=== PATIENT | female | born 1945 | race Caucasian/White ===

== ENCOUNTER 2017-01-25 22:21 | Inpatient (IN) | payer MEDICARE, BC ==
[2017-01-25 23:42] LABS: Hematocrit 40 % (35-47); Hemoglobin 13.4 g/dl (12.0-16.0); Mean Corpuscular HGB Conc 33 g/dl (31-36); Mean Corpuscular Hemoglobin 30 pg (27-31); Mean Corpuscular Volume 91 fL (80-97); Mean Platelet Volume 7 um3 (7.4-10.4); Red Blood Count 4.47 10^6/ul (4.0-5.4); Red Cell Distribution Width 14 % (10.5-15); White Blood Count 7.7 10^3/ul (3.5-10.8)
[2017-01-25 23:57] LABS: Albumin 3.8 g/dL (3.2-5.2); BUN/Creatinine Ratio 21.5 (8-20); EGFR African American 116.2 (>60); EGFR Non-African American 90.4 (>60); Globulin 2.6 g/dL (2-4); Total Bilirubin 0.2 mg/dL (0.2-1.0); Total Protein 6.4 g/dL (6.4-8.9)
[2017-01-26 00:24] LABS: Magnesium 2.4 mg/dL (1.9-2.7); Potassium 4.5 mmol/L (3.5-5.0)
[2017-01-26 00:29] LABS: TSH (Thyroid Stimulating Horm) 2.45 mcIU/mL (0.34-5.60)
[2017-01-26 01:13] LABS: Urine Bacteria Absent (Absent); Urine Bilirubin Negative (Negative); Urine Glucose Negative (Negative); Urine Nitrite Negative (Negative)
[2017-01-26] MEDS ORDERED: Gabapentin CAP(*) 100 MG PO PRN (03:26)
[2017-01-26] MEDS: Heparin VIAL(*) 5000 UNITS/ML VIAL (FIVE THOUSAND) SUBCUT SCH ×3 (05:46→21:09)
[2017-01-26 05:54] LABS: HDL Cholesterol 58.7 mg/dL
--- NOTE | 2017-01-26 08:02 | RAD ---
Indication: Weakness, slurred speech. CT of the brain was performed without IV contrast. Comparison is made with previous exam dated August 30, 2014. Ventricular structures are midline. No midline shift is noted. There is central and cortical atrophy noted. There is no evidence of intracranial mass or hemorrhage. Hypodensity in the right basal ganglia and external capsule adjacent to the right caudate nucleus and the temporal lobe which is new since previous exam but does not appear to be a recent infarct. There is a left paramedian pontine infarct noted. Degenerative disc is undetermined. No intracranial hemorrhage is noted. Mastoid air cells and paranasal sinuses are otherwise unremarkable. IMPRESSION: Old infarct in the right basal ganglia as well as in the left paramedian mary beth. No acute changes are noted.
[2017-01-26] MEDS ORDERED: Cyanocobalamin TAB* 500 MCG PO SCH (09:00)
[2017-01-26] MEDS ORDERED: Diltiazem CD CAP* 240 MG PO SCH (09:00)
[2017-01-26] MEDS: Conjugated Estrogens TAB* 0.3 MG TAB PO SCH (09:09)
[2017-01-26] MEDS: Cholecalciferol TAB* 1000 UNITS PO SCH (09:09)
[2017-01-26] MEDS: Aspirin EC Low Dose* 81 MG TAB.EC PO SCH (09:09)
[2017-01-26] MEDS: Losartan TAB* 25 MG PO SCH (09:09)
--- NOTE | 2017-01-26 09:25 | HP ---
HISTORY AND PHYSICAL: DATE OF ADMISSION: 01/26/17 CHIEF COMPLAINT: Trouble walking. HISTORY OF PRESENT ILLNESS: The patient is a 71-year-old woman who recently got back from [place], who says the last 2 to 3 days she has been having trouble walking. She is taking short choppy steps. She is not sure if she feels like she is going to fall. She thinks it is related to the altitude sickness medication she was on for being in [place]; apparently it was dexamethasone. She also felt she had some slurred speech, word-finding difficulties, and a facial droop. She denied blurry vision or headache. She called her PCP on-call who said go to the ER for further evaluation. PAST MEDICAL HISTORY: Significant for hypertension, hyperlipidemia, vertigo, peripheral neuropathy. MEDICATIONS: Current medications are as follows: 1. Losartan 100 mg daily. 2. Gabapentin mg at bedtime as needed. 3. Diltiazem 240 mg daily. 4. Vitamin B12 1000 mcg every 48 hours. 5. Estrogen/Premarin 0.2 mg daily. 6. Cholecalciferol 1000 units daily. 7. Aspirin 81 mg daily. ALLERGIES: She has an allergy/adverse reaction to SULFA ANTIBIOTICS. FAMILY HISTORY: Father in his 80s, and had coronary artery disease in his 40s. Mother had a stroke and had hypertension, and in her 80s. SOCIAL HISTORY: No tobacco or recreational drug use. She drinks two glasses of wine at night. 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 Her , Neeraj Rossi, is her healthcare proxy. REVIEW OF SYSTEMS: A 14-point review of systems was completed with the patient. All pertinent positives and negatives are in the history of present illness, otherwise it is negative. PHYSICAL EXAMINATION GENERAL: Pleasant woman, lying in bed, in no acute distress. VITAL SIGNS: Blood pressure 118/58, pulse ox 96%, respiratory rate 15 breaths per minute, heart rate 69 beats per minute, temperature 98.3 degrees. HEENT: Normocephalic, atraumatic. Pupils equal, round, reactive to light. Moist mucous membranes. NECK: Supple. No JVD, bruits, palpable thyroid, or lymphadenopathy. LUNGS: Chest is clear to auscultation and percussion bilaterally. CARDIOVASCULAR: S1 and S2 appreciated. Regular rate and rhythm. ABDOMEN: Positive bowel sounds in all 4 quadrants. Soft, nontender, and nondistended. No hepatosplenomegaly. EXTREMITIES: No cyanosis, clubbing, or edema. +2 peripheral pulses bilaterally. NEUROLOGIC: Alert and oriented x3. Moves all extremities. Good finger to nose. 5/5 motor strength in upper and lower extremities. No evidence of facial droop. Cranial nerves II through XII grossly intact. SKIN: No lesions or rashes. LABORATORY DATA: White count 7.7, hemoglobin 13.4, hematocrit 40, platelets 303. Sodium 133, potassium 4.5, chloride 104, CO2 22, BUN 14, creatinine 0.65, glucose 99. Urinalysis shows trace leukocyte esterase. Brain CT shows nonacute right basal ganglia external capsule infarct, not present in 2013 scan. Suspect that acute infarct is not on CT at this time. Possible tiny left paramedian pontine infarct of unknown age, too small to characterize. No hemorrhage or shift or herniation. EKG shows normal sinus rhythm at 61 beats per minute. Normal axis. No acute ST or T-wave changes. ASSESSMENT AND PLAN: 1. Possible CVA. Could be from the dexamethasone, but I am still concerned with her symptoms of slurred speech and word-finding difficulties. We will admit the patient to telemetry. MRI in the a.m. Get transthoracic echo with bubble study. Neurology to see. Neuro checks q. 4 hours. Check lipid profile. Continue aspirin. 2. Hypertension. Continue current regimen. Blood pressure adequate. Adjust medications accordingly. 3. Fluids, Electrolytes, Nutrition. Regular diet. 4. Deep venous thrombosis prophylaxis. Heparin subcu. 5. The patient is a full code. TIME SPENT: Over 75 minutes were spent on this H and P, more than 40 minutes of which were spent in direct [id number] contact with the patient in evaluation, physical examination, counseling, and coordination of care. CC: Dr. Bev Tate* [id number]/[facility] #: [id number] [place]
--- NOTE | 2017-01-26 10:47 | PN ---
Subjective Date of Service: 01/26/17 Interval History: Seen with at bedside Events of this AM reviewed Episode of brief (5 seconds) loss of consciousness with upper extremity shaking. Event correlated with >3 second pause No LH, CP, SOB, nausea Feels symptoms from yesterday resolved Objective Active Medications: Aspirin (Aspirin Ec Low Dose*) 81 mg PO DAILY [facility] Last Admin: 01/26/17 09:09 Dose: 81 mg Cholecalciferol (Vitamin D Tab*) 1,000 units PO DAILY [facility] Last Admin: 01/26/17 09:09 Dose: 1,000 units Cyanocobalamin (Vitamin B12 Tab*) 1,000 mcg PO Q48HR [facility] Last Admin: 01/26/17 09:09 Dose: 1,000 mcg Estrogens Conjugated (Premarin Tab*) 0.3 mg PO DAILY [facility] Last Admin: 01/26/17 09:09 Dose: 0.3 mg Gabapentin (Neurontin Cap(*)) 100 mg PO BEDTIME PRN PRN Reason: INSOMNIA Heparin Sodium (Porcine) (Heparin Vial(*)) 5,000 units SUBCUT Q8HR [facility] Last Admin: 01/26/17 05:46 Dose: 5,000 units Losartan Potassium (Cozaar Tab*) 100 mg PO DAILY [facility] Last Admin: 01/26/17 09:09 Dose: 100 mg Vital Signs 01/26/17 01/26/17 01/26/17 05:01 07:32 08:00 Temperature 98.4 F 98.0 F Pulse Rate 70 67 Respiratory 16 18 16 Rate Blood Pressure 132/62 116/52 (mmHg) O2 Sat by Pulse 97 97 Oximetry Oxygen Devices in Use Now: None Appearance: NAD Eyes: No Scleral Icterus, PERRLA Ears/Nose/Mouth/Throat: NL Teeth, Lips, Gums, Clear Oropharnyx, Mucous Membranes Moist Neck: NL Appearance and Movements; NL JVP, Trachea Midline Respiratory: Symmetrical Chest Expansion and Respiratory Effort, Clear to Auscultation Cardiovascular: RRR, - - 2/6 PHILLIP Abdominal: NL Sounds; No Tenderness; No Distention, No Hepatosplenomegaly Lymphatic: No Cervical Adenopathy Extremities: No Edema, No Clubbing, Cyanosis Neurological: Alert and Oriented x 3, NL Muscle Strength and Tone, - - very slight deviation of tongue to right, slightly slower finger tapping in right hand otherwise configuration release manager intact, no pronator drift, intact finger nose finger Result Diagrams: 01/25/17 23:30 01/25/17 23:30 Assess/Plan/Problems-Billing Assessment: 71 yo F h/o vertigo (receives vertigo PT), peripheral neuropathy, HTN on diltiazem p/w episode of gait instability x 2 days and confusion with slurred speech x 1 hour with hospital stay complicated by LOC in setting of >3 second pause - Patient Problems (1) Altered mental state Comment: Concern for TIA vs CVA. Symptoms now resolved. Potential that conduction abnormality was contributing at home as well TTE with bubble Carotid dopplers c/w neuro checks c/w telemetry hold cardizem as noted below (2) Sinus pause Comment: on cardizem - hold AV harjinder blockers cardiology c/s maintain tele small anteroapical defect on last stress in 2013. Will wait cardiology recs re: stress test (3) HTN (hypertension) Comment: losartan hold cardizem (4) DVT prophylaxis Comment: HSQ
[2017-01-26] MEDS ORDERED: Atropine SYRINGE* 0.1 MG/ML 10 ML SYRINGE (1 MG) ONE (10:54)
[2017-01-26] MEDS ORDERED: EPINEPHrine SYR 0.1 MG/ML* (1:10,000) SYRINGE PRN (11:02)
--- NOTE | 2017-01-26 12:33 | ECHO ---
Patient: ENEDELIA CRAIG [facility] Rec#: [id number] : 1945 Date: 01/26/2017 Age: 71y Height: 162.6 cm / 64.0 in Weight: 69.4 kg / 153.0 lbs Sex: F BSA: 1.8 Room#: [facility] Admit Date#: 01/26/2017 Type: Inpatient Referring: Marques Arora MD Reading: Camilla Chavira MD Checking Clerk: Mindy Manzo RN RDCS CC: Bev Tate MD Transthoracic Echocardiogram Indication: CVA BP: 132/62 HR: 58 Rhythm: Bradycardia Findings History: HTN, dyslipidemia Technical Comments: The study quality is fair. Completed at 1225. Left Ventricle: The left ventricular chamber size is normal. Mild to moderate concentric left ventricular hypertrophy is observed. Global left ventricular wall motion and contractility are within normal limits. There is normal left ventricular systolic function. The estimated ejection fraction is 60-65%. Abnormal left ventricular diastolic filling is observed, consistent with impaired relaxation. Left Atrium: The left atrial chamber size is normal. Right Ventricle: The right ventricular cavity size is normal. The right ventricular global systolic function is normal. Right Atrium: The right atrium is slightly dilated. Interatrial septum appears intact without evidence of shunting. The bubble study is negative. There is evidence of an atrial septal aneurysm. Aortic Valve: The aortic valve is trileaflet. The aortic valve leaflets are mildly thickened. There is a trace of aortic regurgitation. There is no evidence of aortic stenosis. Mitral Valve: The mitral valve leaflets are mildly thickened. There is trace to mild mitral regurgitation. There is no evidence of mitral stenosis. Tricuspid Valve: The tricuspid valve leaflets are normal. There is trace tricuspid regurgitation. No pulmonary hypertension is noted. There is no tricuspid stenosis. Pulmonic Valve: The pulmonic valve appears normal. There is no evidence of pulmonic regurgitation. There is no pulmonic stenosis. Pericardium: There is no significant pericardial effusion. A pericardial fat pad is visualized. Aorta: There is no dilatation of the ascending aorta. There is no dilatation of the aortic arch. There is no dilation of the aortic root. Pulmonary Artery: The main pulmonary artery is not well visualized. Venous: The inferior vena cava appears normal in size. There is a greater than 50% respiratory change in the inferior vena cava dimension. Contrast: Normal saline was used as contrast for the bubble study. Images 35 and 36. Conclusions Mild to moderate concentric left ventricular hypertrophy is observed. Global left ventricular wall motion and contractility are within normal limits. The estimated ejection fraction is 60-65%. Abnormal left ventricular diastolic filling is observed, consistent with impaired relaxation. The right ventricular global systolic function is normal. Interatrial septum appears intact without evidence of shunting. There is a trace of aortic regurgitation. There is trace to mild mitral regurgitation. There is trace tricuspid regurgitation. Compared with prior echo of 08/19/14, ventricular and valvular function are stable. Measurements Name Value Normal Range RVDdMajor (2D) 3.5 cm (2.2 - 4.4) RAd ISD 4CH 5.2 cm (3.4 - 4.9) RA (A4C)W 3.8 cm (2.9 - 4.6) IVSd (2D) 1.3 cm (0.6 - 1) LVPWd (2D) 1.1 cm (0.6 - 1) LVIDd (2D) 3.6 cm (3.6 - 5.4) Aortic Annulus 1.9 cm (1.4 - 2.6) Ao root diameter (2D) 2.7 cm (2.1 - 3.5) Ascending Ao 3 cm (2.1 - 3.4) Aortic arch 2.5 cm (1.8 - 3.4) LA dimension (AP) 2D 3.4 cm (2.3 - 3.8) LAd ISD 4CH 5 cm (2.9 - 5.3) LA ISD 4CH W 3.8 cm (2.5 - 4.5) Name Value Normal Range LA ESV SP 4CH (A/L) 47 ml - LA ESV SP 2CH (A/L) 40 ml - LA ESV BP (A/L) 44 ml - LA ESV BP (A/L) index 25.1 ml/m2 - LA ESV SP 4CH (MOD) 45 ml - LA ESV SP 2CH (MOD) 39 ml - Name Value Normal Range MV E-wave Vmax 0.55 m/sec - MV deceleration time 327 msec - MV A-wave Vmax 0.71 m/sec - MV E:A ratio 0.77 ratio - LV septal e' Vmax 0.06 m/sec - LV lateral e' Vmax 0.07 m/sec - LV E:e' septal ratio 9.2 ratio - LV E:e' lateral ratio 7.9 ratio - Name Value Normal Range AV Vmax 1.2 m/sec - AV VTI 28.8 cm - AV peak gradient 5 mmHg - AV mean gradient 3 mmHg - LVOT Vmax 1.2 m/sec - LVOT VTI 25.7 cm - LVOT peak gradient 5 mmHg - LVOT mean gradient 3 mmHg - BRADLY Vmax 0.92 m/sec - Name Value Normal Range TR Vmax 2.4 m/sec - TR peak gradient 23 mmHg - RAP 3 mmHg - RVSP 26 mmHg - IVC diameter 1.8 cm - Name Value Normal Range PV Vmax 0.74 m/sec -
[2017-01-26] MEDS: Clopidogrel TAB* 75 MG PO SCH (15:26)
--- NOTE | 2017-01-26 15:45 | RAD ---
INDICATION: History of TIA COMPARISON: August 30, 2014 TECHNIQUE: Transverse and longitudinal scans of the carotid and vertebral arteries were performed with gallardo scale, color Doppler, and spectral Doppler imaging. Stenosis criteria is based on flow velocities that correlate with visual internal carotid artery diameter (NASCET criteria) FINDINGS: Right carotid: There is minor homogeneous plaque involving the bifurcation. There is no spectral broadening. The peak systolic velocity of the internal carotid artery is 86 cm/s and the peak diastolic velocity 22 cm/s. The ICA/CCA ratio is calculated at 1.0. This corresponds to a less than 50% diameter stenosis. Left carotid: There is minor homogeneous plaque involving the bifurcation. There is no spectral broadening. The peak systolic velocity of the internal carotid artery is 117 cm/s and the peak diastolic velocity 39 cm/s. The ICA/CCA ratio is calculated at 1.1. This corresponds to a less than 50% diameter stenosis. Right vertebral: Right vertebral waveforms are normal and the flow is antegrade. Left vertebral: Left vertebral waveforms are normal and the flow is antegrade. IMPRESSION: NO EVIDENCE OF A HEMODYNAMICALLY SIGNIFICANT STENOSIS CPT II Codes: 3100F [facility]
[2017-01-26] MEDS ORDERED: Iohexol 350* (CONTRAST) 500 ML MDV IV ONE (16:00)
--- NOTE | 2017-01-26 16:34 | RAD ---
Indication: Difficulty walking. Slurred speech and word finding. Symptoms for 2 days. Comparison: January 25, 2017 CT and April 16, 2014 MRI. Technique: NativeX[employer] 1.5 Dannielle [id number] with GEM suite. MRI brain without contrast. Report: Approximate 0.7 cm AP by 0.2 cm transverse region of restricted diffusion at the LEFT para midline mary beth anteriorly with corresponding decreased signal on ADC map consistent with subacute infarct. Negative for mass effect. Adjacent 3 mm chronic LEFT pontine lacunar infarct noted. No additional foci of restricted diffusion evident at the posterior fossa or cerebrum. Old lacunar infarct at the RIGHT basal ganglia peripheral putamen and external capsule. Mild burden of increased signal in the periventricular and subcortical white matter of the cerebral hemispheres without change most consistent with chronic small vessel ischemic disease. Negative for intra or extra-axial fluid collection. Susceptibility series is negative for stigmata of hemosiderin deposition to indicate previous hemorrhage. Mild prominence of the cerebral sulci and ventricles reflecting involutional change. Unremarkable basal cisterns. Preserved major intracranial flow-voids. Unremarkable orbital contents. Grossly clear paranasal sinuses and mastoid air spaces. No suspicious lesion of the calvarium or skull base evident. IMPRESSION: 1. Small subacute LEFT para midline pontine infarct without associated mass effect. Adjacent small chronic LEFT pontine lacunar infarct. 2. Mild atrophy and stigmata of chronic small vessel ischemic disease without significant interval change.
--- NOTE | 2017-01-26 17:03 | RAD ---
Indication: Stroke. Contrast: Administered 80.1 ml of OMNIPAQUE 350 mg/ml CTA of the neck and head was performed after IV contrast administration. Coronal, sagittal and 3-D reconstructive images were obtained. The aortic arch appears to be intact. There is a common origin of left common carotid artery with innominate artery. The common carotid artery origins demonstrates no evidence of calcific plaque. The common carotid arteries bilaterally demonstrates no evidence of intimal wall thickening. The carotid artery bifurcations bilaterally show no evidence of calcifications. No evidence of carotid artery dissection is noted. The vertebral arteries demonstrates a dominant left vertebral artery. No evidence of calcific plaque is noted at the origins of the vertebral arteries. No evidence of vertebral artery dissection is noted. The intracranial portions of the carotid artery demonstrates no evidence of aneurysmal dilatation. The anterior and middle cerebral arteries are unremarkable although there is an absent A1 segment of the right anterior cerebral artery. The right anterior cerebral artery appears to be supplied by a patent anterior communicating artery the left posterior cerebral artery appears to be supplied by a left patent posterior indicating artery. The right posterior cerebellar artery unremarkable. No aneurysmal dilatation is noted. No branch occlusion is identified. IMPRESSION: NO EVIDENCE OF CAROTID ARTERY STENOSIS IS NOTED. VERTEBRAL ARTERIES ARE GROSSLY UNREMARKABLE. THERE IS AN ABSENT A1 SEGMENT OF THE RIGHT ANTERIOR CEREBRAL ARTERY WITH THE RIGHT ANTERIOR FEMORAL ARTERY SUPPLIED BY PATENT ANTERIOR COMMUNICATING ARTERY. NO EVIDENCE OF ANEURYSMAL DILATATION OR BRANCH OCCLUSION IS NOTED.
--- NOTE | 2017-01-26 23:36 | CONS ---
NEUROLOGY CONSULTATION: DATE OF CONSULTATION: 01/26/17 REFERRING PROVIDER: Dr. Arora. LOCATION: She is an inpatient, room 448. CHIEF COMPLAINT: Slurred speech, unsteadiness. HISTORY OF PRESENT ILLNESS: Sonja Rossi is a 71-year-old right-handed woman who was out visiting her son in [place] and taking dexamethasone because of the altitude of 8000 feet. She generally did not feel well the whole time she was there and that has been the case in the past when she has gone to higher altitudes. She took dexamethasone at this time and was taking it 4 times a day for perhaps 5 days altogether on a tapering schedule. She did not feel as sick as she did the last time she was there, but she felt unsteady and somewhat confused. When she returned to [place] this past weekend, her speech was slurred. She is not sure exactly when it started, but her noted it on Tuesday, which was about 2 to 3 days prior to admission. The unsteadiness had been going on for a bit longer, but she was attributing it to altitude sickness. However, it persisted upon return to [place]. She has not noticed any incoordination in the limbs otherwise, no faints or lightheadedness and no change in vision. She has not had any headache, but she has felt a little bit confused. As part of her evaluation, she had a CT scan of the brain n the bowl sander hours, which showed evidence of an old right small vessel infarction just lateral to the basal ganglia in the right frontal lobe. It appears pretty well defined and appears old. There is also a left paramedian pontine area of low density, which appears to be a small vessel infarction and that is more of an indeterminate age as it is fairly fuzzy. There is no prior history of stroke clinically. PAST MEDICAL HISTORY: Notable for concussion in 2013. She had unsteadiness and difficulty concentrating for quite sometime after that. She has had episodic vertigo precipitated by movement since also by 2013. She has gotten vestibular therapy for that and that has been very helpful. Her past medical history is notable for hypertension for which she has been on medications for quite sometime, hyperlipidemia. MEDICATIONS: At home consistent of; 1. Aspirin 81 mg p.o. daily. 2. Estrogen and Premarin 0.2 mg p.o. daily. 3. Vitamin D 1000 units p.o. daily. 4. Diltiazem 240 mg p.o. daily. 5. Gabapentin 300 mg p.o. q.h.s. 6. Losartan 100 mg p.o. daily. ALLERGIES: She is allergic to SULFA DRUGS. FAMILY HISTORY: Noncontributory. Mother had a stroke in her 80s. REVIEW OF SYSTEMS: Negative for headaches, double vision, difficulty swallowing , or recent falls. 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 She does not smoke. There is no history of diabetes. There is no history of seizures. No recent intestinal problems and her weight has been stable. She has not had any leg pain or swelling recently. No shortness of breath or chest pain. She drinks 2 glasses of wine at night. PHYSICAL EXAMINATION: She is well nourished and well hydrated. Temperature is 98.4 orally, blood pressure 132/62, heart rate in the 60s and regular, respiratory rate is 18, oxygen saturation 97% room air. Heart is in a regular rate and rhythm without murmurs. Lungs are clear bilaterally. Carotid pulses are symmetrical and there are no cervical bruits. Oral mucosa is moist and atraumatic. Neck range of motion is full. Neurological: Pupils react equally from 3 to 2 mm. Funduscopic exam reveals arterial tortuosity and silver wiring. There are no hemorrhages and optic discs are sharp. Eye movements are normal. There is no ptosis. Visual rosenberg are full to confrontation. Facial musculature is notable for very mild flattening of the right nasolabial fold. Formal volitional facial strength testing is normal, however. Facial sensation to pin, temperature, and light touch is intact and symmetric. Palate and tongue appear normal, palate rises symmetrically and tongue protrudes in the midline. There is a mild, what sounds to be lingual dysarthria. Hearing is intact bilaterally and neck strength is normal. On motor exam she has normal muscle tone and strength in the limbs proximally and distally. There may be a mild right pronator drift. Finger taps are normal in the hand symmetrically. Flhpzq-gg-socj maneuver is a little bit clumsy bilaterally and symmetrically, perhaps a little worse on the left. There is no myoclonus or rest tremor. Nqfz-pj-[id number] maneuver is clumsy bilaterally, little worse on the left. Reflexes are hypoactive, but present. Ankle reflexes are trace. Plantar responses equivocal on the right and extensor on the left. Gait is wide based and unsteady. She is able to ambulate independently, but she is somewhat ataxic. Sensory exam in the limbs is intact to vibration, proprioception, and light touch. Romberg sign is present. She is alert and oriented and a pretty good historian, but somewhat inexact on recent details. Language is fluent. She loses her attention and concentration at times. LABORATORY DATA: Includes a CT scan described above. Carotid ultrasound was done and interpretation is pending. Transthoracic echocardiogram done early today reveals [id number] concentric left ventricular hypertrophy with a normal ejection fraction. There is no evidence of patent foramen ovale. There is mild valvular abnormalities, but nothing significant. Other laboratory data is notable for normal CBC, normal chemistry profile including glucose. Cholesterol this morning was 203, LDL 102, TSH 2.45. 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 She has at least one, if not two small vessel infarctions on her CAT scan, which appear old. There may be subacute pontine infarction; however, as onset of her symptoms could have been as early as last week. We will await the results of her MRI scan, which has been ordered. I have added Plavix 75 mg to her aspirin. I would hold off on statins for now. I should note she did have a carotid ultrasound study in 2013, which did not reveal significant carotid stenosis. However, her current symptoms suggest more of a posterior circulation process. She had an episode this morning of a pause on her telemetry with a brief faint. Apparently she was unaware of it and her reported it. Dr. Leigh stopped her diltiazem subsequently. We will continue to monitor her on telemetry as well and I will continue to follow. CC: Dr. Tate * [id number]/[facility] #: [id number] [facility] AMERICAN HOSPITALSav
--- NOTE | 2017-01-27 04:03 | CONS ---
CONSULTATION REPORT: DATE OF CONSULTATION: 01/26/17 REASON FOR CONSULTATION: Bradycardia, symptomatic. CHIEF COMPLAINT: Difficulty walking and speaking. HISTORY OF PRESENT ILLNESS: The patient is a 71-year-old woman with a history of hypertension. She has been seen by my partner, Dr. Adan, in the past as well. The patient states that she recently flew to [place] to see her grandkids. To handle that altitude, she took dexamethasone. They drove to [place] and then flew to [place] and while in [place] took the dexamethasone, felt that her heart was racing but regular. She did not pay much attention to it, but it was racing more than on another trips. She said she is always winded when she goes to [place] with exertion and was not more winded than usual, different from prior trips with the same medications. She did not have leg swelling. They then flew back to [place] and on the drive back to [place], stopped at a bad restaurant. On returning to [place], she had significant diarrhea. She said it was very bad. Following this, 3 days after return from her trip she had trouble walking and had slurred speech and trouble finding her words. In the emergency room, a CT scan showed an old right basal ganglia, external capsular infarct, new from 2013 and no evidence of acute ischemic changes. MRI today consistent with an acute ischemic event. The patient was given hydration, subcutaneous heparin and when seen by the hospitalist this morning on rounds, while talking the patient would not recollect the event, but she was told she lost consciousness. Dr. Leigh who witnessed the event said she had seizure-like activity and on the monitor had a 6 second pause, she had sinus rhythm with some missed sinus beats and she with 3 nonconducted sinus beats. The patient denies any recollection of any prior events, but she does not even know she had this event, only that she was told. She did have an episode 2 years ago, for which she saw Dr. Adan where she walked to the mailbox, was very nauseated from eating some soup that she thinks was bad and felt very disoriented, very spacey and very nauseated. Today, the patient states she did feel nauseated with this event and it had not been a problem beforehand. The patient states that her breathing currently is at baseline. PAST MEDICAL HISTORY: 1. Hypertension. 2. Dyslipidemia. 3. Vertigo. 4. Peripheral neuropathy. MEDICATIONS: Outpatient medications included: Diltiazem 240 mg a day. Current inpatient medications: 1. Diltiazem was stopped after her bradycardic event. 2. She is on Cozaar 100 mg a day. 3. Subcutaneous heparin. 4. Neurontin 100 mg q.h.s. p.r.n. insomnia. 5. Premarin tablet 0.3 mg a day. 6. Epinephrine p.r.n. asystole. 7. B12, 1000 mg q.48 hours. 8. Plavix 75 mg a day. 9. Vitamin D 1000 units a day. 10. Aspirin 81 mg a day. ALLERGIES: Include SULFA ANTIBIOTICS. FAMILY HISTORY: Significant in that her father had early atherosclerotic heart disease in his 40s. Her mother had a stroke and high blood pressure and in her 80s. SOCIAL HISTORY: The patient is a nonsmoker. Drinks 2 glasses of wine at night. 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 Lives with her . REVIEW OF SYSTEMS: Review of systems was performed. No recent fevers, chills, sweats, coughing, orthopnea, PND. No hematuria or dysuria. Her diarrhea as mentioned above was noted. No swelling of the lower extremities. No shortness of breath since she has been home. See history of present illness. All other review of systems was unremarkable. The patient has had ticks in the past, but has had negative Lyme titers in the past (2 years ago). PHYSICAL EXAMINATION: On exam, the patient is 5 feet 4 inches, weighs 156 pounds with BMI of 27. Vital Signs: On admission, blood pressure 137/69 with pulse of 66 currently. Blood pressure 116/62 with pulse of 67 (sinus rhythm), respiratory rate is 18, oxygen saturation 97% on room air and she has been afebrile at 98.0. General Appearance: Short, overweight older woman, lying at 30 degrees, in no acute distress. Psychologically, pleasant and cooperative. Neurologically, awake, alert, and oriented to person, place, I did not evaluate for time. She does have evidence of a mild expressive aphasia, but she does eventually find the words. Comprehension seems normal and excellent. She follows commands well. I did not do formal sensory and motor exam. Skin: Warm , dry. No appreciable cyanosis. HEENT: Mucous membranes moist. Tongue is midline. Neck: Without appreciable increased JVP. Good carotid pulses, they are symmetrical. Breath sounds were clear with good effort. No wheezes, rales , or rhonchi. Coronary: S1 and S2 regular, a bit distant, but no murmurs or rub. Abdomen: No epigastric discomfort. No hepatosplenomegaly or masses. Lower extremities were free of edema and warm. Sequential compression stockings were on. LABORATORY DATA/DIAGNOSTIC STUDIES: White count 7.7, hemoglobin 13.4, platelets 303. Sodium 133, potassium 4.5, glucose 99, BUN 14, creatinine 0.65. Urinalysis; specific gravity 1.009, ketones negative, esterase trace, nitrite negative, bacteria absent. Total cholesterol 203, triglycerides 210, LDL cholesterol 102, and HDL cholesterol 59. Troponin 0.00. On 10/04/13, Lyme titers were negative. On 01/25/17, brain CT showed the old stroke described above. CT angiogram of the head today at 1504 showed no evidence of carotid stenosis. Vertebral arteries unremarkable. Absent A1 segment of the right anterior cerebral artery appears to be supplied by the patent anterior communicating artery and left posterior cerebral artery appears to be supplied by the left patent posterior indicating artery. Carotid Doppler study from 01/26/17 showed no hemodynamically significant stenoses. Brain MRI from 01/26/17 at 9 this morning shows small subacute left paramidline pontine infarct without mass effect. Adjacent small chronic left pontine lacunar infarct and mild atrophy and stigmata of chronic small vessel ischemic disease. Echocardiogram today shows mild to moderate left ventricular hypertrophy with an ejection fraction of 60% to 65% and abnormal diastolic filling. She had normal right ventricular function. No evidence of interatrial shunting. Good valve function with mild to mitral insufficiency, trace aortic insufficiency, and trace tricuspid insufficiency. (Bubble study negative). Atrial septal aneurysm noted. IMPRESSION: In summary, Sonja Rossi is a 71-year-old woman with a history of hypertension who travelled by plane to [place] and back, on dexamethasone steroids for altitude and after returning developed initially diarrhea followed by acute neurological symptoms of difficulty walking and expressive aphasia with evidence of a new ischemic injury on her MRI today. The patient had the sensation of heart racing on dexamethasone and altitude in [place] and had evidence of complete heart block with loss of consciousness today and a possible scenario of bradycardia with vagal stimuli 2 years ago when she met Dr. Adan. The potential etiologies of the stroke would include a paradoxical embolus related to flying and deep venous thrombosis, but this was not demonstrated on echo. It is also possible the patient had paroxysmal atrial fibrillation that is asymptomatic leading to a stroke and it is also possible that the timing of the stroke is incidental to the flying and more related to hypertension and smoking. With respective dysrhythmias, we have not seen any tachyarrhythmias, but she has bradyarrhythmias possibly related to increased vagal tone, but she certainly could have underlying conduction deficits as well. I agree with holding diltiazem in the setting of her symptomatic bradycardia this morning and defer to Neurology for antihypertensive goals going forward. I noted that the patient is on estrogen replacement and would question if this should be continued in the setting of her current presentation, but again we will defer to Medicine and Neurology. I discussed with the patient the potential future recommendation of a pacemaker and she states she is not sure if she really wants this and would want to confer with her as well as Dr. Adan. Option for outpatient monitoring would include an external event monitor, and implantable event monitor, the latter has a higher incidence of success with cryptogenic stroke. Additional studies that may want be considered would be a transesophageal echo as this can be more sensitive for cardioembolic sources and I would repeat a bubble study with this. We would be able to look at her aorta for plaque as well as her left atrial appendage. For now, I agree with the medication management on board and Cardiology will follow with her during this hospitalization and she should follow up with Dr. Adan on discharge. CC: Bev Tate MD* [id number]/[facility] #: [id number] ADELA
[2017-01-27] MEDS: Heparin VIAL(*) 5000 UNITS/ML VIAL (FIVE THOUSAND) SUBCUT SCH ×2 (05:15→14:00)
[2017-01-27 05:49] LABS: BUN/Creatinine Ratio 22.4 (8-20); Calcium 9.5 mg/dL (8.6-10.3); EGFR African American 112.2 (>60); EGFR Non-African American 87.3 (>60); Potassium 3.9 mmol/L (3.5-5.0)
[2017-01-27] MEDS: Cholecalciferol TAB* 1000 UNITS PO SCH (07:33)
[2017-01-27] MEDS: Aspirin EC Low Dose* 81 MG TAB.EC PO SCH (07:33)
[2017-01-27] MEDS: Losartan TAB* 25 MG PO SCH (07:33)
[2017-01-27] MEDS: Conjugated Estrogens TAB* 0.3 MG TAB PO SCH (07:33)
[2017-01-27] MEDS: Clopidogrel TAB* 75 MG PO SCH (07:33)
--- NOTE | 2017-01-27 15:52 | PN ---
Hospitalist Progress Note . HOSPITALIST DISCHARGE NOTE: See dc instructions and summary by me. Patient stable for dc dc instructions reviewed with the patient at the bedside. DC patient home today.
[2017-01-27 16:02] VITALS: BP 138/74
--- NOTE | 2017-01-27 22:38 | CONS ---
NEUROLOGY FOLLOWUP CONSULTATION NOTE: DATE OF FOLLOWUP: 01/27/17 LOCATION: She is an inpatient in [facility]. HOSPICE DOCTOR: Obinna Paredes MD PRIMARY CARE PHYSICIAN: Bev Tate MD CHIEF COMPLAINT: Stroke. INTERVAL HISTORY: Since yesterday Julissa had an MRI of her brain, which revealed a subacute left paramedian pontine infarction. It reveals an old right basal ganglia and left pontine infarction as well. She had a CT angiogram of the brain, which did not reveal any significant abnormalities of the neck or brain vessels. She had an echocardiogram, which likewise was essentially unremarkable. Bubble study was negative. Other laboratory data includes chemistries with cholesterol of 203 and LDL of 102. Glucose is normal. MEDICATIONS: Medications were reviewed and she remains on: 1. Aspirin 81 mg p.o. every day. 2. Plavix 75 mg p.o. every day. 3. Premarin 1 p.o. every day. 4. Gabapentin 100 mg p.o. at bedtime. 5. Losartan 100 mg p.o. every day. 6. Heparin subcutaneous 5000 units q.8 hours. PHYSICAL EXAM: She is well-nourished and well-hydrated. She has been afebrile throughout her hospital stay. Blood pressure most recently 140/71, heart rates in the 60s and regular, and respirations 16. Neurological Exam: Pupils were equal and there is no ptosis. Eye movements are normal and visual rosenberg are full. Facial musculature are symmetric today. Facial sensation is intact to light touch. Palate and tongue are normal and she has a mild dysarthria. Motor exam reveals a normal strength in the limbs. There is no pronator drift. There is a mild action tremor on [id number] maneuver bilaterally. There is no dysmetria otherwise. Gait is wide based and cautious and slightly ataxic. She is able to ambulate independently. She is alert and fully oriented. Language is fluent and memory is intact. IMPRESSION AND PLAN: Impression is that of a small vessel infarction. She has two old small vessel infarctions on her imaging as well, so I think she has small-vessel disease. In spite of her bradycardia yesterday, I do not think the pattern suggests a cardioembolic source. I do not think she needs long- term monitoring from the stroke prospective alone. I do recommend that her Premarin be stopped due to her stroke and that she remain on dual-antiplatelet therapy with aspirin and Plavix for 90 days and then be switched to Plavix monotherapy. She does not smoke. She states she drinks one glass of wine per evening and I told her that is reasonable, but if she drinks 2 or more then that would increase her risk of stroke. Her LDL at 103 is borderline and I do not think she needs to be on a statin given the lack of large vessel disease, but I did advice her to try to stick to a low-animal fat diet and have her lipids rechecked in a couple of months. I would like to see her follow up in my office in 3 to 4 weeks to see if there are any loose ends. She has a blood pressure monitor at home and I encouraged her to take her blood pressure daily and reporting to Dr. Tate to optimize blood pressure control with a target of less than 140 systolic and less than 90 diastolic. CC: Dr. Tate * [id number]/[facility] #: [id number] MTDD
--- NOTE | 2017-01-28 23:21 | ED ---
Daisha Bhat Salem, scribed for Sidney Figueredo MD on 01/25/17 at 2333 . Neurological HPI - HPI Summary HPI Summary: Patient is 71 y/o female who presents with neurological deficits since yesterday. She reports slurred speech (since this evening according to her ), weakness, diarrhea, and trouble walking straight. She had diarrhea yesterday, but has not today. She states she recently traveled to [place] for 5 -6 days and was prescribed Decadron by her PCP for the altitude. Diarrhea began when she stopped taking Decadron. Pt reports hx of vertigo. - History of Current Complaint Chief Complaint: EDNeurologicalDeficit Stated Complaint: SLURRED SPEECH,DIFFICULTY AMBULATING Time Seen by Provider: 01/25/17 23:09 Hx Obtained From: Patient, Family/Consumer Attorney Onset/Duration: Gradual Onset, Started days ago Timing: Constant Onset Severity: Moderate Current Severity: Moderate Neurological Deficit Location: Generalized Pain Intensity: 0 Pain Scale Used: 0-10 Numeric Character: Weak, Impaired Speech, Other: - Diarrhea. Troule walking straight. Aggravating: Nothing Alleviating: Nothing Associated Signs and Symptoms: Positive: Impaired Speech, Diarrhea - Allergy/Home Medications Allergies/Adverse Reactions: Allergies Allergy/AdvReac Type Severity Reaction Status Date / Time Sulfa Antibiotics Allergy SEVERE Verified 01/25/17 22:29 HEADACHES Sulfamethoxazole AdvReac Severe headache, Verified 01/25/17 22:29 w/Trimethoprim vomiting [From Bactrim] PMH/Surg Hx/FS Hx/Imm Hx Endocrine/Hematology History: Reports: Hx Anemia - ANEMIA-TAKES B12 Denies: Hx Diabetes Cardiovascular History: Reports: Hx Hypercholesterolemia, Hx Hypertension - ON MED Denies: Hx Pacemaker/ICD, Other Cardiovascular Problems/Disorders Respiratory History: Denies: Other Respiratory Problems/Disorders GI History: Denies: Other GI Disorders History: Denies: Hx Renal Disease, Other Problems/Disorders Musculoskeletal History: Reports: Hx Arthritis - BILAT. THUMBS, C5 Denies: Hx Osteoporosis Sensory History: Reports: Hx Cataracts - EARLY CATARACT IN ONE EYE, Hx Contacts or Glasses Denies: Hx Hearing Aid Opthamlomology History: Reports: Hx Cataracts - EARLY CATARACT IN ONE EYE, Hx Contacts or Glasses Neurological History: Reports: Other Neuro Impairments/Disorders - VERTIGO-MARCH 2014 STILL RESOLVING Psychiatric History: Denies: Hx Panic Disorder - Surgical History Surgery Procedure, Year, and Place: APPENDECTOMY; D & C; HERNIATED OVARY REPAIR ; HYSTERECTOMY; RT BREAST Bx Hx Anesthesia Reactions: No Infectious Disease History: No Infectious Disease History: Denies: Traveled Outside the [place] in Last 30 Days - Family History Known Family History: Positive: Cardiac Disease, Hypertension, Other - CVA. - Social History Alcohol Use: Daily Alcohol Amount: 1-2 glasses wine/night Hx Substance Use: No Substance Use Type: Reports: None Hx Tobacco Use: No Smoking Status (MU): Never Smoked Tobacco Review of Systems Negative: Fever Positive: Diarrhea Neurological: Other - Trouble walkin straight. Positive: Weakness, Slurred Speech All Other Systems Reviewed And Are Negative: Yes Physical Exam Vital Signs On Initial Exam: Initial Vitals Temp Pulse Resp BP Pulse Ox 98.3 F 66 18 137/69 99 01/25/17 22:25 01/25/17 22:25 01/25/17 22:25 01/25/17 22:25 01/25/17 22:25 - [place] Coma Scale Coma Scale Total: 15 Diagnostics - Vital Signs Vital Signs Temp Pulse Resp BP Pulse Ox 01/25/17 22:25 98.3 F 66 18 137/69 99 - Laboratory Lab Results: Lab Results 01/25/17 01/25/17 01/25/17 Range/Units 00:55 23:30 23:30 WBC 7.7 (3.5-10.8) 10^3/ul RBC 4.47 (4.0-5.4) 10^6/ul Hgb 13.4 (12.0-16.0) g/dl Hct 40 (35-47) % MCV 91 (80-97) fL MCH 30 (27-31) pg MCHC 33 (31-36) g/dl RDW 14 (10.5-15) % Plt Count 303 (150-450) 10^3/ul MPV 7 L (7.4-10.4) um3 Neut % (Auto) 48.0 (38-83) % Lymph % (Auto) 42.2 (25-47) % [place] % (Auto) 7.3 (1-9) % Eos % (Auto) 1.7 (0-6) % Baso % (Auto) 0.8 (0-2) % Absolute Neuts (auto) 3.7 (1.5-7.7) 10^3/ul Absolute Lymphs (auto) 3.2 (1.0-4.8) 10^3/ul Absolute Monos (auto) 0.6 (0-0.8) 10^3/ul Absolute Eos (auto) 0.1 (0-0.6) 10^3/ul Absolute Basos (auto) 0.1 (0-0.2) 10^3/ul Absolute Nucleated RBC 0 10^3/ul Nucleated RBC % 0.1 Sodium 133 (133-145) mmol/L Potassium 4.5 (3.5-5.0) mmol/L Chloride 104 (101-111) mmol/L Carbon Dioxide 22 (22-32) mmol/L Anion Gap 7 (2-11) mmol/L BUN 14 (6-24) mg/dL Creatinine 0.65 (0.51-0.95) mg/dL Est GFR ( Amer) 116.2 (>60) Est GFR (Non-Af Amer) 90.4 (>60) BUN/Creatinine Ratio 21.5 H (8-20) Glucose 99 (70-100) mg/dL Lactic Acid (0.5-2.0) mmol/L Calcium 10.0 (8.6-10.3) mg/dL Magnesium 2.4 (1.9-2.7) mg/dL Total Bilirubin 0.20 (0.2-1.0) mg/dL AST 17 (13-39) U/L ALT 12 (7-52) U/L Alkaline Phosphatase 36 (34-104) U/L Troponin I 0.00 (<0.04) ng/mL Total Protein 6.4 (6.4-8.9) g/dL Albumin 3.8 (3.2-5.2) g/dL Globulin 2.6 (2-4) g/dL Albumin/Globulin Ratio 1.5 (1-3) TSH 2.45 (0.34-5.60) mcIU/mL Urine Color Straw Urine Appearance Clear Urine pH 5.0 (5-9) Ur Specific [place] 1.009 L (1.010-1.030) Urine Protein Negative (Negative) Urine Ketones Negative (Negative) Urine Blood Negative (Negative) Urine Nitrate Negative (Negative) Urine Bilirubin Negative (Negative) Urine Urobilinogen Negative (Negative) Ur Leukocyte Esterase Trace H (Negative) Urine WBC (Auto) Trace(0-5/hpf) (Absent) Urine RBC (Auto) Trace(0-2/hpf) (Absent) Urine Bacteria Absent (Absent) Urine Glucose Negative (Negative) 01/25/17 Range/Units 23:30 WBC (3.5-10.8) 10^3/ul RBC (4.0-5.4) 10^6/ul Hgb (12.0-16.0) g/dl Hct (35-47) % MCV (80-97) fL MCH (27-31) pg MCHC (31-36) g/dl RDW (10.5-15) % Plt Count (150-450) 10^3/ul MPV (7.4-10.4) um3 Neut % (Auto) (38-83) % Lymph % (Auto) (25-47) % [place] % (Auto) (1-9) % Eos % (Auto) (0-6) % Baso % (Auto) (0-2) % Absolute Neuts (auto) (1.5-7.7) 10^3/ul Absolute Lymphs (auto) (1.0-4.8) 10^3/ul Absolute Monos (auto) (0-0.8) 10^3/ul Absolute Eos (auto) (0-0.6) 10^3/ul Absolute Basos (auto) (0-0.2) 10^3/ul Absolute Nucleated RBC 10^3/ul Nucleated RBC % Sodium (133-145) mmol/L Potassium (3.5-5.0) mmol/L Chloride (101-111) mmol/L Carbon Dioxide (22-32) mmol/L Anion Gap (2-11) mmol/L BUN (6-24) mg/dL Creatinine (0.51-0.95) mg/dL Est GFR ( Amer) (>60) Est GFR (Non-Af Amer) (>60) BUN/Creatinine Ratio (8-20) Glucose (70-100) mg/dL Lactic Acid 1.5 (0.5-2.0) mmol/L Calcium (8.6-10.3) mg/dL Magnesium (1.9-2.7) mg/dL Total Bilirubin (0.2-1.0) mg/dL AST (13-39) U/L ALT (7-52) U/L Alkaline Phosphatase (34-104) U/L Troponin I (<0.04) ng/mL Total Protein (6.4-8.9) g/dL Albumin (3.2-5.2) g/dL Globulin (2-4) g/dL Albumin/Globulin Ratio (1-3) TSH (0.34-5.60) mcIU/mL Urine Color Urine Appearance Urine pH (5-9) Ur Specific [place] (1.010-1.030) Urine Protein (Negative) Urine Ketones (Negative) Urine Blood (Negative) Urine Nitrate (Negative) Urine Bilirubin (Negative) Urine Urobilinogen (Negative) Ur Leukocyte Esterase (Negative) Urine WBC (Auto) (Absent) Urine RBC (Auto) (Absent) Urine Bacteria (Absent) Urine Glucose (Negative) Result Diagrams: 01/25/17 23:30 01/27/17 05:24 Lab Statement: Any lab studies that have been ordered have been reviewed, and results considered in the medical decision making process. - CT BRAIN CT Interpretation Completed By: Radiologist - FINDINGS: There is a nonacute right basal ganglia/external capsule infract (not present on that August 2014 scan). The suspected acute infract is not visible on CT at this time (infract less than 6 hours old main not be detectable on CT). Possible tiny left paramedian pontine infract of unknown age. Too small to characterize. No hemorrhage shift or herniation. - EKG 2325 Cardiac Rate: NL EKG Interpretation: NSR @ 61 bpm. NIH Scale - NIH Scale Level of Consciousness: Alert/Keenly Responsive Ask Patient the Month and His/Her Age: Both Correct Ask Pt to Open/Close Eyes and Cemetery Worker/Release Non-Paretic Hand: Both Correctly Best Gaze (Only Horizontal Eye Movement): Normal Visual Field Testing: No Visual Loss Facial Paresis-Pt to Smile & Close Eyes or Grimace Symmetry: Normal/Symmetrical Motor Function - Right Arm: No Drift-Holds 10 Seconds Motor Function - Left Arm: No Drift-Holds 10 Seconds Motor Function - Right Leg: No Drift-Holds 10 Seconds Motor Function - Left Leg: No Drift-Holds 10 Seconds Limb Ataxia-Must be out of Proportion to Weakness Present: Absent Sensory (Use Pinprick to Test Arms/Legs/Trunk/Face): Normal Best Language (Describe Picture, Name Items): Some Loss Dysarthria (Read Several Words): Slurs Some Words Extinction and Inattention: No Abnormality Total Score: 2 Re-Evaluation - Re-Evaluation First Eval Re-Evaluation Time: 01:08 Comment: Informed pt of plan to admit. She is agreeable. Course/Dx - Course Course Of Treatment: 71 y/o presents with slurred speech, weakness, diarrhea, and trouble walking straight since yesterday. Pt was taking Decadron. CT reveals , per radiology: There is a nonacute right basal ganglia/external capsule infract (not present on that August 2014 scan). The suspected acute infract is not visible on CT at this time (infract less than 6 hours old main not be detectable on CT). Possible tiny left paramedian pontine infract of unknown age. Too small to characterize. No hemorrhage shift or herniation. EKG was negative. Discussed pt's case with Dr. Brink and Dr. Arora. Pt will be admitted. - Diagnoses Provider Diagnoses: Altered mental status - Physician Notifications Discussed Care of Patient With: Dr. Brink (neurologist) @ 0105. Discussed pt s case. Dr. Arora (hospitalist) @ 0109. Will admit. Discharge - Discharge Plan Condition: Stable Disposition: ADMITTED TO [facility] documentation as recorded by the Daisha reyes Salem accurately reflects the service I personally performed and the decisions made by me, Sidney Figueredo MD.
== END 2017-01-27 18:30 | disposition home or self-care (01) | DRG 66 ==
LOC: ED 22:21 → MEDTELE 01-26 04:16
PROVIDERS: ADMIT Internal Medicine; ATTEND Internal Medicine
DX: I63.9 Cerebral infarction, unspecified (principal); G62.9 Polyneuropathy, unspecified; I48.0 Paroxysmal atrial fibrillation; I10 Essential (primary) hypertension; H26.9 Unspecified cataract; I08.3 Combined rheumatic disorders of mitral, aortic and tricuspid valves; Z88.2 Allergy status to sulfonamides; E78.00 Pure hypercholesterolemia, unspecified; M19.042 Primary osteoarthritis, left hand; M19.041 Primary osteoarthritis, right hand; R29.702 NIHSS score 2; Z82.49 Family history of ischemic heart disease and other diseases of the circulatory system; Z82.3 Family history of stroke; R00.1 Bradycardia, unspecified; I45.5 Other specified heart block; Z79.82 Long term (current) use of aspirin; Z79.02 Long term (current) use of antithrombotics/antiplatelets; R11.0 Nausea; R47.81 Slurred speech; R53.1 Weakness
CPT/HCPCS: 36415; 70450; 70496; 70498; 70551; 80048; 80053; 80061; 81003; 81015; 83605; 83735; 84443; 84484; 85025; 86618; 87086; 93005; 93306; 93880; A9270-GY; J0461; J1644; Q9967

== ENCOUNTER 2017-02-26 13:23 | Observation (INO) | payer MEDICARE, BC ==
[2017-02-26] MEDS ORDERED: NS 0.9% 1000 ML* 1,000 ML IV SCH ×2 (14:45→20:32)
[2017-02-26 14:57] LABS: Hematocrit 42 % (35-47); Hemoglobin 13.8 g/dl (12.0-16.0); Mean Corpuscular HGB Conc 33 g/dl (31-36); Mean Corpuscular Hemoglobin 30 pg (27-31); Mean Corpuscular Volume 90 fL (80-97); Mean Platelet Volume 8 um3 (7.4-10.4); Red Blood Count 4.62 10^6/ul (4.0-5.4); Red Cell Distribution Width 13 % (10.5-15); White Blood Count 6.3 10^3/ul (3.5-10.8)
[2017-02-26 15:12] LABS: ALT 15 U/L (7-52); AST 23 U/L (13-39); Albumin 4.1 g/dL (3.2-5.2); Alkaline Phosphatase 37 U/L (34-104); Anion Gap 5 mmol/L (2-11); BUN/Creatinine Ratio 19.4 (8-20); Blood Urea Nitrogen 13 mg/dL (6-24); C Reactive Protein < 1.00 mg/L (< 5.00); CO2 Carbon Dioxide 25 mmol/L (22-32); Calcium 10.7 mg/dL (8.6-10.3); Chloride 105 mmol/L (101-111); Creatine Kinase 56 U/L (10-223); EGFR African American 112.2 (>60); EGFR Non-African American 87.3 (>60); Globulin 2.6 g/dL (2-4); Glucose 87 mg/dL (70-100); Lipase 10 U/L (11.0-82.0); Magnesium 2.2 mg/dL (1.9-2.7); Potassium 3.9 mmol/L (3.5-5.0); Sodium 135 mmol/L (133-145); Total Protein 6.7 g/dL (6.4-8.9)
--- NOTE | 2017-02-26 16:11 | RAD ---
INDICATION: Palpitations and nausea COMPARISON: Most recent comparison chest x-ray dated February 11, 2016 TECHNIQUE: Single AP portable view of the chest was obtained. FINDINGS: Image quality is compromised due to the relative inferiority of a portable chest x-ray. The heart and mediastinum exhibit normal size and contour. The lungs are grossly clear. There is no evidence of a large pleural effusion. Visualized bones are normal for the patient's age. IMPRESSION: No radiographic evidence for acute cardiopulmonary abnormality on this portable chest x-ray.
--- NOTE | 2017-02-26 16:52 | ED ---
Zackery Bhat Billy, scribed for Deniz Irene MD on 02/26/17 at 1439 . Palpitations / Dysrhythmia - HPI Summary HPI Summary: Patient is a 71 year-old female coming to [facility] for evaluation of an episode of palpitations at 1300 today. She states that she began to feel a racing heart rate while she was shopping at [employer]. She also had shortness of breath but denies any chest pain or dizziness. She also reports feeling nauseated. She still feels nauseated at this time but the palpitations have resolved. Patient is wearing a 21-day Holter monitor per Dr. Adan (miter cutter). She had a similar episode of palpitations last month. Patient uses Plavix. She states that she has been eating and drinking rather well recently, but she had an extra cup of coffee this morning compared to normal (4 oz. of coffee in total). - History of Current Complaint Chief Complaint: EDDysrhythmPalp Time Seen by Provider: 02/26/17 14:22 Hx Obtained From: Patient Onset/Duration: Gradual Onset Timing: Intermittent Episodes Lasting: Severity Initially: Moderate Severity Currently: Moderate Character: Fast Aggravating: Nothing Alleviating: Nothing Associated Signs & Symptoms: Shortness of Breath, Nausea - Allergy/Home Medications Allergies/Adverse Reactions: Allergies Allergy/AdvReac Type Severity Reaction Status Date / Time Sulfa Antibiotics Allergy SEVERE Verified 02/26/17 14:41 HEADACHES Sulfamethoxazole AdvReac Severe headache, Verified 02/26/17 14:41 w/Trimethoprim vomiting [From Bactrim] PMH/Surg Hx/FS Hx/Imm Hx Endocrine/Hematology History: Reports: Hx Anemia - ANEMIA-TAKES B12 Denies: Hx Diabetes Cardiovascular History: Reports: Hx Hypercholesterolemia, Hx Hypertension - ON MED Denies: Hx Pacemaker/ICD, Other Cardiovascular Problems/Disorders Respiratory History: Denies: Other Respiratory Problems/Disorders GI History: Denies: Other GI Disorders History: Denies: Hx Renal Disease, Other Problems/Disorders Musculoskeletal History: Reports: Hx Arthritis - BILAT. THUMBS, C5 Denies: Hx Osteoporosis Sensory History: Reports: Hx Cataracts - EARLY CATARACT IN ONE EYE, Hx Contacts or Glasses Denies: Hx Hearing Aid Opthamlomology History: Reports: Hx Cataracts - EARLY CATARACT IN ONE EYE, Hx Contacts or Glasses Neurological History: Reports: Hx CVA, Other Neuro Impairments/Disorders - VERTIGO-MARCH 2014 STILL RESOLVING Psychiatric History: Denies: Hx Panic Disorder - Surgical History Surgery Procedure, Year, and Place: APPENDECTOMY; D & C; HERNIATED OVARY REPAIR ; HYSTERECTOMY; RT BREAST Bx Hx Anesthesia Reactions: No Infectious Disease History: No Infectious Disease History: Denies: Traveled Outside the [place] in Last 30 Days - Family History Known Family History: Positive: Cardiac Disease, Hypertension, Other - CVA. - Social History Lives: With Family Alcohol Use: Daily Alcohol Amount: 2/day Hx Substance Use: No Substance Use Type: Reports: None Hx Tobacco Use: No Smoking Status (MU): Never Smoked Tobacco Review of Systems Positive: Palpitations. Negative: Chest Pain Positive: Shortness Of Breath Positive: Nausea All Other Systems Reviewed And Are Negative: Yes Physical Exam Triage Information Reviewed: Yes Vital Signs On Initial Exam: Initial Vitals Temp Pulse Resp BP Pulse Ox 98.4 F 79 18 147/80 100 02/26/17 13:29 02/26/17 13:29 02/26/17 13:29 02/26/17 13:29 02/26/17 13:29 Vital Signs Reviewed: Yes Appearance: Positive: Well-Appearing, No Pain Distress Skin: Positive: Warm, Skin Color Reflects Adequate Perfusion, Dry Head/Face: Positive: Normal Head/Face Inspection Eyes: Positive: EOMI, SAAD ENT: Positive: Normal ENT inspection Neck: Positive: Supple, Nontender Respiratory/Lung Sounds: Positive: Clear to Auscultation, Breath Sounds Present Cardiovascular: Positive: RRR Abdomen Description: Positive: Nontender, Soft Musculoskeletal: Positive: Normal, Strength/ROM Intact Neurological: Positive: Normal, Sensory/Motor Intact, Alert, Oriented to Person Place, Time Psychiatric: Positive: Affect/Mood Appropriate - Waka Coma Scale Coma Scale Total: 15 Diagnostics - Vital Signs Vital Signs Temp Pulse Resp BP Pulse Ox 02/26/17 14:30 84 20 137/78 99 02/26/17 14:21 83 12 99 02/26/17 14:19 151/72 02/26/17 14:18 97.8 F 89 19 151/72 98 02/26/17 13:29 98.4 F 79 18 147/80 100 - Laboratory Lab Results: Lab Results 05/06/17 05/06/17 05/06/17 Range/Units 14:30 14:30 14:30 WBC 6.3 (3.5-10.8) 10^3/ul RBC 4.62 (4.0-5.4) 10^6/ul Hgb 13.8 (12.0-16.0) g/dl Hct 42 (35-47) % MCV 90 (80-97) fL MCH 30 (27-31) pg MCHC 33 (31-36) g/dl RDW 13 (10.5-15) % Plt Count 260 (150-450) 10^3/ul MPV 8 (7.4-10.4) um3 Neut % (Auto) 58.7 (38-83) % Lymph % (Auto) 32.5 (25-47) % Swift % (Auto) 7.3 (1-9) % Eos % (Auto) 0.8 (0-6) % Baso % (Auto) 0.7 (0-2) % Absolute Neuts (auto) 3.7 (1.5-7.7) 10^3/ul Absolute Lymphs (auto) 2.1 (1.0-4.8) 10^3/ul Absolute Monos (auto) 0.5 (0-0.8) 10^3/ul Absolute Eos (auto) 0.1 (0-0.6) 10^3/ul Absolute Basos (auto) 0 (0-0.2) 10^3/ul Absolute Nucleated RBC 0 10^3/ul Nucleated RBC % 0 INR (Anticoag Therapy) 0.91 (0.89-1.11) APTT 31.5 (26.0-36.3) seconds Sodium (133-145) mmol/L Potassium (3.5-5.0) mmol/L Chloride (101-111) mmol/L Carbon Dioxide (22-32) mmol/L Anion Gap (2-11) mmol/L BUN (6-24) mg/dL Creatinine (0.51-0.95) mg/dL Est GFR ( Amer) (>60) Est GFR (Non-Af Amer) (>60) BUN/Creatinine Ratio (8-20) Glucose (70-100) mg/dL Lactic Acid (0.5-2.0) mmol/L Calcium (8.6-10.3) mg/dL Magnesium (1.9-2.7) mg/dL Total Bilirubin (0.2-1.0) mg/dL AST (13-39) U/L ALT (7-52) U/L Alkaline Phosphatase (34-104) U/L Total Creatine Kinase (10-223) U/L CK-MB (CK-2) (0.6-6.3) ng/mL Troponin I (<0.04) ng/mL C-Reactive Protein (< 5.00) mg/L B-Natriuretic Peptide 15 ( - 100) pg/mL Total Protein (6.4-8.9) g/dL Albumin (3.2-5.2) g/dL Globulin (2-4) g/dL Albumin/Globulin Ratio (1-3) Lipase (11.0-82.0) U/L TSH (0.34-5.60) mcIU/mL 02/26/17 02/26/17 Range/Units 14:30 14:30 WBC (3.5-10.8) 10^3/ul RBC (4.0-5.4) 10^6/ul Hgb (12.0-16.0) g/dl Hct (35-47) % MCV (80-97) fL MCH (27-31) pg MCHC (31-36) g/dl RDW (10.5-15) % Plt Count (150-450) 10^3/ul MPV (7.4-10.4) um3 Neut % (Auto) (38-83) % Lymph % (Auto) (25-47) % Swift % (Auto) (1-9) % Eos % (Auto) (0-6) % Baso % (Auto) (0-2) % Absolute Neuts (auto) (1.5-7.7) 10^3/ul Absolute Lymphs (auto) (1.0-4.8) 10^3/ul Absolute Monos (auto) (0-0.8) 10^3/ul Absolute Eos (auto) (0-0.6) 10^3/ul Absolute Basos (auto) (0-0.2) 10^3/ul Absolute Nucleated RBC 10^3/ul Nucleated RBC % INR (Anticoag Therapy) (0.89-1.11) APTT (26.0-36.3) seconds Sodium 135 (133-145) mmol/L Potassium 3.9 (3.5-5.0) mmol/L Chloride 105 (101-111) mmol/L Carbon Dioxide 25 (22-32) mmol/L Anion Gap 5 (2-11) mmol/L BUN 13 (6-24) mg/dL Creatinine 0.67 (0.51-0.95) mg/dL Est GFR ( Amer) 112.2 (>60) Est GFR (Non-Af Amer) 87.3 (>60) BUN/Creatinine Ratio 19.4 (8-20) Glucose 87 (70-100) mg/dL Lactic Acid 0.7 (0.5-2.0) mmol/L Calcium 10.7 H (8.6-10.3) mg/dL Magnesium 2.2 (1.9-2.7) mg/dL Total Bilirubin 0.40 (0.2-1.0) mg/dL AST 23 (13-39) U/L ALT 15 (7-52) U/L Alkaline Phosphatase 37 (34-104) U/L Total Creatine Kinase 56 (10-223) U/L CK-MB (CK-2) 3.3 (0.6-6.3) ng/mL Troponin I 0.00 (<0.04) ng/mL C-Reactive Protein < 1.00 (< 5.00) mg/L B-Natriuretic Peptide ( - 100) pg/mL Total Protein 6.7 (6.4-8.9) g/dL Albumin 4.1 (3.2-5.2) g/dL Globulin 2.6 (2-4) g/dL Albumin/Globulin Ratio 1.6 (1-3) Lipase 10 L (11.0-82.0) U/L TSH 1.40 (0.34-5.60) mcIU/mL Result Diagrams: 02/26/17 14:30 02/26/17 14:30 Lab Statement: Any lab studies that have been ordered have been reviewed, and results considered in the medical decision making process. - Radiology CXR Xray Interpretation: No Acute Changes Radiology Interpretation Completed By: Radiologist - EKG 1334 Cardiac Rate: NL - 74 bpm EKG Rhythm: Sinus Rhythm ST Segment: Normal Ectopy: None Course/Dx - Course Course Of Treatment: NO CRITICAL CARE TIME Assessment/Plan: DISCUSSED WITH DR GILL. PATIENT HAS HX OF SYMPTOMATIC JUDE CARDIA ON DILTIAZEM. TODAY, BY HISTORY, SHE HAS SYMPTOMATIC TACHYCARDIA. ADMIT HOSPITALIST STABLE. PATIENT MAY REQUIRE PACEMAKER. - Diagnoses Provider Diagnoses: Heart palpitations, Near syncope - Physician Notifications Discussed Care Of Patient With: Dr. Gill (cardiology) at 1553: recommends admission to hospitalist. Dr. Rouse (hospitalist) at 1614: accepts admission. Discharge - Discharge Plan Condition: Stable Disposition: ADMITTED TO [facility] documentation as recorded by the Zackery reyes Billy accurately reflects the service I personally performed and the decisions made by me, Deniz Irene MD.
[2017-02-26] MEDS ORDERED: Acetaminophen TAB* 325 MG PO PRN (17:03)
[2017-02-26] MEDS ORDERED: Ondansetron INJ* 2 MG/ML VIAL IV PRN (17:03)
[2017-02-26] MEDS ORDERED: Enoxaparin(*) 40 MG/0.4 ML SYR SUBCUT SCH (18:00)
--- NOTE | 2017-02-27 01:12 | HP ---
ADMISSION HISTORY AND PHYSICAL: DATE OF ADMISSION: 02/26/17 PRIMARY CARE PROVIDER: Bev Tate MD ADMITTING PROVIDER: RAHEL Velasquez ATTENDING PROVIDER: Leanne Choi MD * (DICTATED BY RAHEL VELASQUEZ) CHIEF COMPLAINT: Palpitations with nausea and shortness of breath. HISTORY OF PRESENT ILLNESS: This is a 71-year-old female, who was discharged from the hospital approximately three weeks ago after an acute stroke. She experienced severe bradycardia with complete heart block and sinus pause during her hospital stay. Her diltiazem was discontinued at the time of discharge. She has since followed up with her slitting machine operator helper, Dr. Adan, who placed the Holter monitor approximately 5 days ago on 02/21/17. The patient states that she otherwise has been feeling well and completely asymptomatic up until this afternoon when she was at the grocery store and began to feel flushed with complaints of palpitations, nausea and some shortness of breath. She states her symptoms lasted approximately 90 minutes and she presented to the emergency department for evaluation. The patient also reports that she had a new blood pressure medication started by her primary care provider within the last couple of days. She was unsure of the name of it, but after verifying with her pharmacy, it appears that she started amlodipine 2.5 mg daily. The patient's symptoms from her recent stroke has nearly completely resolved. She is participating with physical therapy, but otherwise denies any gross deficits. Dr. Gill, slitting machine operator helper business control specialist, was contacted by the emergency department provider, who recommended admission to evaluate dysrhythmia present on her Holter monitor and if she has experienced a tachydysrhythmia, which is most likely based on her symptoms, then she is likely eligible for a pacemaker with her history of sinus pauses and complete heart block while on an AV harjinder blocking agent. PAST MEDICAL HISTORY: 1. Recent CVA - recent ischemic pontine infarct without residual deficits. 2. History of symptomatic bradycardia and complete heart block while on diltiazem. 3. Hypertension. 4. Hyperlipidemia. 5. Vertigo. 6. Peripheral neuropathy. PAST SURGICAL HISTORY: 1. Appendectomy. 2. D and C. 3. Ovarian cyst excision. 4. Hysterectomy. 5. Tonsillectomy. HOME MEDICATIONS: 1. Amlodipine 2.5 mg p.o. daily. 2. Aspirin 81 mg p.o. daily. 3. Vitamin D 1000 units p.o. daily. 4. Plavix 75 mg p.o. daily. 5. Vitamin B12 1000 mcg p.o. daily. 6. Gabapentin 100 to 200 mg as needed for sleep. 7. Losartan 100 mg p.o. daily. SOCIAL HISTORY: The patient lives at home with her . She consumes 1 to 2 glasses of wine nightly with dinner. She has 2 children, none of which live locally and she denies any smoking history. REVIEW OF SYSTEMS: As noted above in HPI. The remainder of systems were reviewed, but otherwise negative. PHYSICAL EXAMINATION GENERAL: This is a very pleasant 71-year-old female, who appears much younger than her stated age. She is in no acute distress. Lying comfortably on hospital stretcher. VITAL SIGNS: Temperature 98.4 degrees Fahrenheit, pulse 79 beats per minute, respiratory rate 18 per minute, oxygen saturation 100% on room air, and blood pressure 147/80 mmHg. HEENT: Head is normocephalic, atraumatic. Mucous membranes are pink and moist. RESPIRATORY: Lungs are clear to auscultation without wheezes, crackles, or rhonchi. CARDIOVASCULAR: Heart has a regular rate and rhythm without murmurs, rubs, or gallops. ABDOMEN: Abdomen is soft and nontender to palpation. EXTREMITIES: No lower extremities edema present. PSYCH: The patient is alert and appropriately oriented. SKIN: Limited exam shows no concerning rashes or lesions. DIAGNOSTIC STUDIES/LAB DATA: CBC is unremarkable with a white blood cell count of 6,300, hemoglobin of 13.8 g/dL and platelet of 260,000. INR normal at 0.91 and PTT normal at 31. Comprehensive metabolic panel is unremarkable with the sodium of 135, potassium 3.9, BUN of 13, creatinine 0.67. Lactic acid normal at 0.7. Transaminases and total bilirubin within normal limits. Troponin negative at 0.00. TSH normal at 1.4. IMAGIN. Chest x-ray shows no acute process. 2. EKG shows a normal sinus rhythm. ASSESSMENT AND PLAN: This is a 71-year-old female, who was recently admitted after an acute cerebrovascular accident, who experienced symptomatic bradycardia and complete heart block and recently been on a Holter monitor as an outpatient who presents with complaints of palpitations, nausea and shortness of breath. 1. Palpitation - the patient is asymptomatic at this time and initial EKG is unremarkable. She did have a Holter monitor in place at the time of the event. Contacted the field organizer of the monitor who will be faxing strips from this afternoon during the time that she was symptomatic. 2. Recent cerebrovascular accident - no residual deficits. Continue dual antiplatelet therapy with aspirin and Plavix - notably the patient is not on a statin for unknown reason. 3. Hypertension - the patient is moderately hypertensive in the emergency department. We will check orthostatic vital signs with a recent addition of her amlodipine. Otherwise, we will plan to continue her losartan and amlodipine. 4. Vertigo - the patient reports that her symptoms have actually improved since her cerebrovascular accident and her acute symptoms that brought her to the emergency department today are very different than her prior vertigo symptoms. 5. Peripheral neuropathy. 6. Code status - the patient is full code. 7. Healthcare proxy is the patient's . 8. DVT prophylaxis - the patient will be started on Lovenox subcu. DISPOSITION: The patient is being admitted to observation status. Final disposition will depend on results of Holter monitor. The patient may require pacemaker placement on Tuesday. RAHEL VELASQUEZ CC: Bev Tate MD; Katia Adan MD * [id number]/CPS #: [id number] MTDD
[2017-02-27 05:27] LABS: BUN/Creatinine Ratio 28.1 (8-20); Calcium 10.1 mg/dL (8.6-10.3); EGFR African American 135.2 (>60); EGFR Non-African American 105.2 (>60); Potassium 3.7 mmol/L (3.5-5.0)
[2017-02-27 07:36] VITALS: BP 143/73
[2017-02-27] MEDS ORDERED: amLODIPine TAB* 5 MG PO SCH (09:00)
[2017-02-27] MEDS ORDERED: Aspirin EC Low Dose* 81 MG TAB.EC PO SCH (09:00)
[2017-02-27] MEDS ORDERED: Clopidogrel TAB* 75 MG PO SCH (09:00)
[2017-02-27] MEDS ORDERED: Losartan TAB* 25 MG PO SCH (09:00)
--- NOTE | 2017-02-27 09:21 | PN ---
Subjective Date of Service: 02/27/17 Interval History: Patient reports no symptoms overnight. No palpitations, CP, SOB. No abd pain, n/v. Tele strips have arrived from [employer] for review. Objective Active Medications: Acetaminophen (Tylenol Tab*) 650 mg PO Q4H PRN PRN Reason: FEVER/PAIN Amlodipine Besylate (Norvasc Tab*) 2.5 mg PO DAILY [facility] Last Admin: 02/27/17 07:57 Dose: 2.5 mg Aspirin (Aspirin Ec Low Dose*) 81 mg PO DAILY [facility] Last Admin: 02/27/17 07:58 Dose: 81 mg Clopidogrel Bisulfate (Plavix Tab*) 75 mg PO DAILY [facility] Last Admin: 02/27/17 07:54 Dose: 75 mg Enoxaparin Sodium (Lovenox(*)) 40 mg SUBCUT Q24H [facility] Last Admin: 02/26/17 17:31 Dose: 40 mg Losartan Potassium (Cozaar Tab*) 100 mg PO DAILY [facility] Last Admin: 02/27/17 07:54 Dose: 100 mg Ondansetron HCl (Zofran Inj*) 4 mg IV Q4H PRN PRN Reason: NAUSEA/VOMITING Vital Signs: Temp Pulse Resp BP Pulse Ox 98.0 F 67 16 143/73 97 02/27/17 07:13 02/27/17 07:13 02/27/17 07:13 02/27/17 07:13 02/27/17 07:13 Oxygen Devices in Use Now: None Appearance: Well appearing, in NAD Respiratory: Symmetrical Chest Expansion and Respiratory Effort, Clear to Auscultation Cardiovascular: NL Sounds; No Murmurs; No JVD, RRR Abdominal: NL Sounds; No Tenderness; No Distention Extremities: No Edema Skin: No Rash or Ulcers Neurological: Alert and Oriented x 3 Result Diagrams: 02/26/17 14:30 02/27/17 04:29 Additional Lab and Data: . Diagnostic Imaging: Review of Holter monitor - ?afib/flutter rate ~110 bpm and sinus ~90 bpm Tele overnight - NSR Assess/Plan/Problems-Billing Assessment: This is a very pleasant 71 yo female with recent CVA, HTN, HLD, peripheral neuropathy and h/o vertigo who presented with c/o palpitations while she had a Holter monitor in place. - Patient Problems (1) Atrial fibrillation Comment: A small segment of a her telemetry from her Holter recording at the time of symptoms records what looks like atrial fibrillation with rate ~110bpm Pacer is likely indicated d/t her h/o pause and AV block with prior use of diltiazem Recommend anticoagulation with her recent h/o CVA Discuss further with Dr Gill (2) H/O: CVA (cerebrovascular accident) Comment: No residual deficit Currently on dual antiplatelet therapy (3) HLD (hyperlipidemia) Comment: No current statin Recommend starting LDL >100 with recent CVA (4) HTN (hypertension) Comment: Normotensive Cont losartan and amlodipine (5) DVT prophylaxis Comment: SQ Lovenox (6) Full code status Status and Disposition: Inpatient. Possible pacemaker placement
[2017-02-27] MEDS ORDERED: Potassium Chlor TAB* 20 MEQ TAB.ER PO ONE (10:35)
[2017-02-27] MEDS ORDERED: Rivaroxaban TAB(*) 20 MG TAB PO SCH (11:00)
--- NOTE | 2017-02-27 13:22 | CONS ---
CC: Dr. Tate; Dr. Adan CONSULTATION REPORT: DATE OF CONSULT: REASON FOR CONSULT: Palpitations, tachybrady syndrome. HISTORY OF PRESENT ILLNESS: This is a very pleasant 71-year-old woman whose past medical history in cludes occult CVA, hypertension, borderline cholesterol, and a recent hospitalization for CVA with r ight leg weakness and slurred speech. During that admission, she also was noted to have a complete heart block transiently in the setting of nausea with loss of consciousness, which was witnessed whi le she was in the hospital. Her diltiazem was stopped and she had no further bradyarrhythmias. She was discharged and has been undergoing physical therapy and has had recovery of her function for th e most part. She was seen by Neurology during her January admission and was started on Plavix. It wa s thought that it was not likely that this was a cardioembolic event. She saw Dr. Adan in [facility] and an event monitor was placed. They tried to evaluate for recurrent bradyarrhythmias, guide recommendations concerning further treatment. Yesterday while checking at [facility], she was standing in line and at about 12:45 noticed that her heart rate was fast and she felt a little short of barron th and nauseated. She felt what she thought was a fast but regular heart rhythm. She stood in line and was able to check out, but asked her to take her to the emergency room. She proceeded t o the car and at that point remembered she had the event monitor and activated the trigger. We subs equently recovered the tracings which revealed AFib with heart rates in the 100 to 120 range for the most part, which was present at 1301 and resolved by about 1311. She has been observed overnight a nd had no further tachy or bradyarrhythmias. She has had no syncope or near syncope. No stroke sym ptoms. She does report that she normally has 2 glasses of wine at night and 2 ounces of espresso tw ice a day. She denies any syncope other than that episode in early January while admitted for the str danae. The scripts are in the chart and reveal what appeared to be complete heart block and then asys tole on January 27. PAST MEDICAL HISTORY: Includes: 1. Hypertension. 2. Borderline hyperlipidemia. 3. CVA. Apparently, she was told of previous CVAs during the recent admission and she also had isc hemic pontine infarct without residual defects on the January admission. 4. She has a history of vertigo, and that has been for several years and perhaps related to, in ret rospect, infarct. 5. Her admitting note notes peripheral neuropathy, but she denies that. PAST SURGICAL HISTORY: Includes: 1. Appendectomy. 2. D and C. 3. Ovarian cyst excision. 4. Hysterectomy. 5. Tonsillectomy. HOME MEDICATIONS: Include: 1. Amlodipine 2.5 mg a day. 2. Aspirin 81 a day. 3. Plavix 75 mg a day. 4. Vitamin B12. 5. Vitamin D. 6. Gabapentin as needed for sleep. 7. Losartan 100 mg a day. SOCIAL HISTORY: She is , accompanied by her . She has 2 adult children in their 40s. 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 She drinks 2 glasses of wine at night and 2 espressos a day. She denies tobacc o use. REVIEW OF SYSTEMS: Review of systems x10 was negative except as above. PHYSICAL EXAM: She is a well-developed, well-nourished female, appearing younger than her stated ag e. No significant JVD. Cardiac Exam: S1, S2. No clear murmurs, gallops, or rubs. Chest is clear . No CVAT. Abdomen: Bowel sounds present, nontender. No hepatosplenomegaly. Extremities: Femor al pulses are intact without bruits. Distal pulses intact. Motor strength 5/5 bilaterally. Deep te ndon reflexes 2/4. Alert and oriented x3. DIAGNOSTIC STUDIES/LAB DATA: Include a potassium of 3.7, BUN of 16, creatinine of 0.6, calcium of 1 0.1. Troponin 0 x3, CRP was negative. TSH was normal. Her cholesterol from January 26 was 203 with an LDL of 102, HDL of 59, and triglycerides of 210. Chest x-ray revealed no radiographic evidence. Acute pulmonary abnormality on the chest x-ray. EKG revealed normal sinus rhythm with minor nonsp ecific lateral ST changes, poor R-wave progression. She did have an echocardiogram on January 26, ich revealed mild to moderate LVH, EF of 60% to 65%, abnormal diastolic function, trace AI, trace to mild MR, trace TR. Stable compared to July of 2014. She also had a stress test performed in 2013; at that time, it was suspicious for small stress-induced anterior apical defect, no oth er defects seen, low risk. 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 She also has a history of CVAs which put her at increased risk for cardioembolic events even if these have not been demonstrated to be cardioembolic. I discussed katya s at length with her and her . I explained that she is at increased risk for cardioembolic e vents on the basis of her CHADS score, which was elevated at 4. I also explained that she has a tachybrady syndrome and that her ramon is a contraindication to usin g rate control agents to control her heart rate. I did explain that a pacemaker would help to preve nt bradycardia and allow us to manage her tachy arrhythmias. I would speculate that she may have castellon d AFib in the past, which was relatively controlled on diltiazem. It would be my hope that with the pacemaker, we can safely reinstate treatment with diltiazem and control her blood pressure and hear t rate and symptoms related to AFib. I have discussed the case with Hieu Sepulveda as well and I castellon ve recommended the followin. I strongly recommended we switch her from aspirin and Plavix to aspirin and anticoagulation give n her significant risk of recurrent CVA. 2. We discussed the risks and benefits of bleeding and she is accepting. 3. I suggested she consider options for treatment of AFib. We discussed a gamut of options includi ng no changes in her regimen to pacemaker and rate control versus antiarrhythmics and referral for a blation. At this point, she wants to discuss the options with her and consider further whet her she wants to proceed with pacemaker or an EP consultation. 4. I did strongly advise that she avoid triggers including low potassium, dehydration, caffeine, an d alcohol. 5. I also suggested we consider lowering the detection threshold for AFib on her event monitor [employer], so that we are able to capture episodes of AFib that may be occurring below the detection ambrose it. [id number]/[facility] #: [id number]
--- NOTE | 2017-02-27 21:52 | DS ---
DISCHARGE SUMMARY: DATE OF ADMISSION: 02/26/17 DATE OF DISCHARGE: 02/27/17 PRIMARY CARE PROVIDER: Dr. Tate. PRIMARY FISCAL ANALYST: Dr. Adan. CONSULTING FISCAL ANALYST: Dr. Gill. DISCHARGING PROVIDER: RAHEL Velasquez. SUPERVISING PHYSICIAN: DO Juan Lamb (DICTATED BY RAHEL VELASQUEZ) PRIMARY DISCHARGE DIAGNOSIS: Atrial fibrillation with presyncope. SECONDARY DISCHARGE DIAGNOSES: 1. Recent history of ischemic cerebrovascular accident without significant residual deficit. 2. Hypertension. 3. Hyperlipidemia. 4. Recent history of sinus pause and atrioventricular block with use of diltiazem. DISCHARGE MEDICATIONS: 1. Amlodipine 2.5 mg p.o. daily. 2. Aspirin 81 mg p.o. daily. 3. Vitamin D 1000 units p.o. daily. 4. Vitamin B12, 1000 mcg p.o. daily. 5. Neurontin 100 to 200 mg p.o. at bedtime as needed for sleep. 6. Losartan 100 mg p.o. daily. 7. Xarelto 20 mg p.o. daily. MEDICATION CHANGES: Discontinue Plavix. HOSPITAL IMAGIN. Chest x-ray shows no acute process. 2. EKG shows a normal sinus rhythm without ischemic changes. 3. In-hospital telemetry monitoring shows normal sinus rhythm without dysrhythmia or significant pause. 4. Review of Holter monitor strips reveals atrial fibrillation with a rate of approximately 110 beats per minute, captured just transiently. HOSPITAL COURSE: This is a 71-year-old female who was recently hospitalized with an ischemic stroke that had resulted in an expressive aphasia and ataxia, but her symptoms have since resolved. She also has some hypertension, hyperlipidemia, history of vertigo, and peripheral neuropathy who presented to the emergency department with complaints of palpitations with nausea and some mild shortness of breath. The patient had followed up with her java web engineer following her recent hospitalization as she had a significant sinus pause and AV block for which her diltiazem was discontinued and the patient was subsequently asymptomatic throughout the remainder of her hospital stay. Dr. Adan recommended Holter monitor, which was in place at the time of her symptoms. When she reached the emergency department, initial EKG demonstrated a normal sinus rhythm and labs were unremarkable including a negative troponin. The patient states that her symptoms had lasted approximately 90 minutes, but she was asymptomatic at the time of evaluation. Company for her Holter monitor was contacted and recent strips were faxed for review, which demonstrated a small section of atrial fibrillation that was relatively rate controlled at about 110 beats per minute. The remainder of the strips showed sinus rhythm with a rate in the 90s or so. Telemetry monitoring overnight during her hospital stay was unremarkable and the patient remained asymptomatic. In the setting of her recent CVA, anticoagulation was recommended for secondary prevention and the patient is being discharged with Xarelto. With her history of AV block and sinus pause on AV harjinder blocking agent, she has an indication for pacemaker. The patient was evaluated by java web engineer, Dr. Gill, and the patient would like a second opinion regarding pacemaker placement before making this decision, but she is in agreement with starting anticoagulation. Dr. Gill also suggested reprograming the capture threshold for Holter monitor to capture lower rates. DISPOSITION: The patient is being discharged to home where she lives with her . Medication changes as outlined above. She requires close followup with her java web engineer, Dr. Adan, as well as her primary care provider to further discuss pacemaker placement. RAHEL VELASQUEZ CC: Dr. Adan; Dr. Tate* [id number]/[facility] #: [id number] [facility] [place] DIVISIONSav
== END 2017-02-27 11:50 | disposition home or self-care (01) ==
LOC: ED 13:23 → MEDTELE 16:23 → INTOOBSV 16:23
PROVIDERS: ADMIT Internal Medicine; ATTEND Hospitalist
DX: I48.91 Unspecified atrial fibrillation (principal); Z79.01 Long term (current) use of anticoagulants; R55 Syncope and collapse; Z86.73 Personal history of transient ischemic attack (TIA), and cerebral infarction without residual deficits; I10 Essential (primary) hypertension; R42 Dizziness and giddiness; E78.5 Hyperlipidemia, unspecified; G62.9 Polyneuropathy, unspecified; D64.9 Anemia, unspecified; R06.02 Shortness of breath; Z79.82 Long term (current) use of aspirin; Z79.899 Other long term (current) drug therapy
CPT/HCPCS: 36415; 71010; 80048; 80053; 82550; 82553; 83605; 83690; 83735; 83880; 84443; 84484; 85025; 85610; 85730; 86140; 93005; 96372; 99283; A9270-GY; G0378; J1650

== ENCOUNTER → 2018-05-12 07:07 | Day surgery (SDC) | payer MEDICARE, BC ==
--- NOTE | 2018-05-01 22:32 | HP ---
CC: Dr. Bev Tate; Dr. Abbe Flores; Dr. Mervin Gill * ADMISSION HISTORY AND PHYSICAL: DATE OF ADMISSION: 05/12/18 ATTENDING SURGEON: Dr. Chela Gutierrez * (RAHEL Alvarado, dictating) . CHIEF COMPLAINT: Hyperparathyroidism. HISTORY OF PRESENT ILLNESS: This is a 73-year-old female, who at least since 2010 has had elevated serum calcium and did have an elevated serum PTH at that time as well. She has intermittently had normal serum calcium but most recent PTH in July 2017 was elevated at 11.9 (normal up to 9.3). Her most recent serum calcium was 11.0 on 02/17/18. She has not had any signs or symptoms of hypercalcemia,other than that a DEXA scan in 2016 showed normal but decreased bone mineral density compared with prior study. The patient underwent an ultrasound of the neck on 09/22/18, which showed normal right side thyroid. There were couple of small (less than or less to 4 mm) nodules in the left lobe. In addition, there was hypoechoic solid nodule measuring up to 0.7 cm in the inferior portion of the left level of the thyroid and a SPECT scan confirmed increased uptake and activity in that same region consistent with a left lower pole parathyroid adenoma. Patient does note past personal history of radiation therapy to her tonsils. She was seen in the office by Dr. Gutierrez on 04/04/18. Dr. Gutierrez has reviewed with her the indications for surgery, the risks, benefits and alternatives and she would like to proceed and scheduled with parathyroidectomy. PAST MEDICAL HISTORY: Sick sinus syndrome requiring pacemaker, paroxysmal atrial fibrillation on chronic anticoagulation (followed by Dr. Gill; see separate attached note), hypertension, obstructive sleep apnea (on CPAP), hyperlipidemia. She did have a stroke in January 2017, apparently manifested as primarily vertigo though this is since resolved. She was told by her neurologist that she may have had two other prior strokes. PAST SURGICAL HISTORY: Include pacemaker placement in 2017, tonsillectomy, and appendectomy remotely, D and C, ovarian cystectomy, and hysterectomy. No reported surgical or anesthesia problems. CURRENT MEDICATIONS: 1. Diltiazem 360 mg once daily. 2. Xarelto 20 mg once daily (the patient is instructed to hold after her last dose on 05/10/18). 3. Losartan 160 mg once daily. 4. Neurontin 100 mg one to two tablets q.h.s. p.r.n. for insomnia. She also takes the following supplements: 1. Probiotic. 2. Vitamin B12. 3. Vitamin D. ALLERGIES: Drug allergies, SULFA (headache). FAMILY HISTORY: She has a sister with an apparent pseudocholinesterase inhibitor disorder but the patient herself has been tested and found to be negative. No additional family history of anesthesia problems and no family history of bleeding disorders or thromboembolic disease. SOCIAL HISTORY: Patient is . She denies use of tobacco. She drinks on average 2 drinks per day. She denies other recreational drug use. REVIEW OF SYSTEMS: General: No recent constitutional symptoms or acute illnesses. She has had an intentional 15-pound weight loss over the past year. HEENT: No problems reported. Cardiovascular: As above, see Dr. Gill's note. Stress echo done on 04/20/18 essentially normal other than exaggerated hypertensive response. Respiratory: No history of asthma, chronic cough, or shortness of breath. GI: No problems reported. : No problems reported. Endocrine: No diabetes or thyroid dysfunction. See also above per HPI. Neuro/ Psych: No recent problems with vertigo or imbalance. PHYSICAL EXAMINATION GENERAL: Well-nourished, well-developed female, in no acute distress. VITAL SIGNS: Height 5 feet 4 inches, weight 143 pounds. Blood pressure 122/78 , pulse 66, respirations 18. HEENT: Pupils are equal, round, and reactive. EOMs intact. No conjunctival pallor. Oropharynx: Teeth in good repair. No intraoral lesions. NECK: No lymphadenopathy, thyromegaly, or masses. LUNGS: Clear to auscultation. No rales or wheezes. HEART: Regular rate and rhythm. No murmur noted. BREASTS: Not examined. ABDOMEN: Soft, nontender to palpation. No palpable masses or organomegaly. GENITALIA: Not done. RECTAL: Not done. BACK: No spinous process or CVA tenderness. EXTREMITIES: No edema. NEUROLOGICAL: Grossly intact. SKIN: Warm and dry. No suspicious rashes or lesions noted. IMPRESSION: Hyperparathyroidism. PLAN: Parathyroidectomy. RAHEL ALVARADO [id number]/[facility] #: [id number] [facility]ERS[facility]
[~2018-05-12 07:07] MED LIST: Acetaminophen TAB* 325 MG PO PRN; Buffered Lidocaine 0.9% SYRIN* 5 ML/SYR SYRINGE INTRADERM ONE; Bupivacaine 0.25% W/EPI* 10 ML SDV ONE; Cisatracurium* 2 MG/ML MDV 5 ML ONE; Dexamethasone IV* 4 MG/ML 1 ML (4 MG) ONE; EPHEDrine (Pressors)* 50 MG/ML VIAL ONE; HYDROmorphone INJ* 0.5 MG/0.5 ML SYRINGE IV PRN; Ketorolac INJ* 30 MG/ML 1 ML VIAL IV PRN; Ketorolac INJ* 30 MG/ML 1 ML VIAL ONE; Lidocaine 2% PF * 5 ML VIAL ONE; Midazolam* 1 MG/ML 2 ML VIAL (2 MG) ONE; Naloxone* 0.4 MG/ML 1 ML VIAL IV PRN; Ondansetron INJ* 2 MG/ML VIAL ONE; PROCHLORPERAZINE INJ 5 MG/ML 2 ML VIAL IV PRN; Propofol* 10 MG/ML 20 ML BTL IV PUSH ONE; fentaNYL* 50 MCG/ML 2 ML VIAL (100 MCG VIAL) IV PRN; fentaNYL* 50 MCG/ML 2 ML VIAL (100 MCG VIAL) ONE
--- NOTE | 2018-05-12 11:09 | BRIEFOPN ---
Brief Operative Note - Surgery Procedures: Procedures COLONOSCOPY (12/14/12) EXC LES TEND SHEATH HAND (06/13/14) 05/12/18 Op Note (dictated) Pre-op dx: hyperparathyroidism Post-op dx: same procedure: parathyroidectomy surgeon: Matt Asst: Carin Ward PAS Anesth: general EBL: 5 cc Complications: none SCDs on during surgery Abx: not indicated Pt. tolerated procedure well and was transferred to in a stable condition. CLFoster
[2018-05-12 12:54] VITALS: BP 127/67
--- NOTE | 2018-05-12 14:22 | OP ---
CC: Dr. Bev Tate; Dr. Gill; Dr. Abbe Flores * DATE OF OPERATION: 05/12/18 - [facility] DATE OF : 49 SURGEON: Chela Gutierrez MD. ASSISTANTS: Meredith Ward NP, and Rafael Phipps. PRE-OP DIAGNOSIS: Hyperparathyroidism. POST-OP DIAGNOSIS: Hyperparathyroidism. OPERATIVE PROCEDURE: Parathyroidectomy. INDICATIONS: This patient is a 73-year-old woman with recent history of hyperparathyroidism, confirmed with imaging studies and laboratory studies that demonstrated an abnormal parathyroid in the left lower pole position. DESCRIPTION OF PROCEDURE: She was prepared for surgery and brought to the operating room after rapid PTH preoperatively was drawn and noted to be 13.9. In the OR, she was given general anesthesia and the neck was prepped and draped in the usual sterile fashion. After infiltrating with local anesthetic, an incision was made along the line that had been marked preoperatively. Subcutaneous tissue was divided with sharp dissection through the platysma muscle. The bipolar cautery was used to control the small bleeding vessels that were encountered. Then, flaps were developed superiorly to the thyroid notch and inferiorly to the sternal notch again using the sharp dissection and then, the strap muscles were divided along the midline again using the sharp dissection and again, bleeding vessels that were encountered were controlled with bipolar cautery. The strap muscles were then retracted laterally over the left lobe of the thyroid gland and the thyroid gland itself was retracted medially. Small vessels approaching the either pole were divided between clips or using the ligature and inferior to the lower pole of the thyroid gland, a small nodule became apparent that was consistent with an enlarged left lower pole parathyroid. This was dissected free from surrounding tissue using primarily blunt dissection and vessels that were encountered were controlled with clips and/or the ligature. Once the gland was out, a portion of that was sent for frozen section and a repeat rapid PTH identified as an intraoperative rapid PTH was sent. The results came back showing hypercellular parathyroid tissue on the frozen section and the PTH dropped to 1.6 suggesting that in fact we had identified the abnormal parathyroid. The wound was irrigated with saline. Some Surgicel was placed in the bed where the parathyroid had been and then closure was accomplished. A 3-0 Vicryl was used to reapproximate the strap muscles, 4-0 Vicryl was used to reapproximate the platysma muscle and the skin was closed with 4-0 Prolene in a subcuticular fashion. Steri-Strips and dry fluffy dressing were applied. All sponge and instrument counts were correct. The patient tolerated the procedure well and was transferred to recovery in a stable condition. [id number]/[facility] #: [id number] MTDD
== END | disposition home or self-care (01) ==
LOC: OR 07:07
PROVIDERS: ATTEND Surgery
DX: E21.3 Hyperparathyroidism, unspecified (principal); Z95.0 Presence of cardiac pacemaker; I49.5 Sick sinus syndrome; Z79.01 Long term (current) use of anticoagulants; I48.0 Paroxysmal atrial fibrillation; I10 Essential (primary) hypertension; G47.33 Obstructive sleep apnea (adult) (pediatric); E78.5 Hyperlipidemia, unspecified; Z86.73 Personal history of transient ischemic attack (TIA), and cerebral infarction without residual deficits
CPT/HCPCS: 36415; 83970; 88305; 88331; J1100; J1885; J2250; J2405; J2704; J3010